=== PATIENT | male | born 2000 | race Caucasian/White ===

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

== ENCOUNTER 2021-01-10 18:19 | Emergency (ER) | payer OTHER, SELFPAY ==
--- NOTE | ~2021-01-10 | XR_ITS ---
EXAMINATION: XR CHEST CLINICAL INFORMATION: Shortness of breath. COMPARISON: Chest x-ray 12/18/2020 TECHNIQUE: 2 views of the chest were obtained. FINDINGS: No significant abnormality is noted involving the heart, lungs, mediastinum, bony thorax or soft tissues. XR/XR chest 2V IMPRESSION: Unremarkable examination.
[2021-01-10 18:32] VITALS: BP 118/62; PULSE 82; RESP 18; TEMP 37.2; O2SAT 98; BMI 23.6
[2021-01-10 19:24] LABS: Influenza A PCR NEGATIVE (Negative); Influenza B PCR NEGATIVE (Negative); Resp Syncy Virus RNA Qual PCR NEGATIVE (Negative); SARS COV2 PCR INHOUSE POSITIVE (Negative)
--- NOTE | 2021-01-10 19:51 | ED.URI ---
HPI - URI/Sore Throat General Chief Complaint: Upper Respiratory Symptoms Stated Complaint: daughter covid + diff breathing Time Seen by Provider: 01/10/21 19:51 History of Present Illness HPI Narrative: Patient complains of runny nose mild cough mild shortness of breath for past 24 hours and his daughter is positive for COVID There is no shortness of breath or chest pain now no nausea or vomiting Related Data Previous Rx's Medication Instructions Recorded albuterol sulfate 90 mcg/actuation 2 puff INHALATION Q4-6H PRN #8.5 g 12/18/20 aerosol inhaler doxycycline hyclate 100 mg tablet 100 mg PO Q12H 10 Days #20 tab 12/18/20 omeprazole 20 mg capsule,delayed 20 mg PO DAILY 30 Days #30 cap 12/18/20 release ondansetron 4 mg disintegrating 4 mg PO Q6-8H PRN #14 tab 12/18/20 tablet Allergies Allergy/AdvReac Type Severity Reaction Status Date / Time No Known Allergies Allergy Verified 12/18/20 20:49 Review of Systems Review of Systems: Positive for cough and runny nose Negative no fever no chills no dizziness no weakness no headache no neck pain no chest pain no shortness of breath now no sputum no coughing blood no sore throat no difficulty breathing or swallowing no abdominal pain no nausea vomiting or diarrhea no rash Yes all other systems are reviewed and are negative [facility] Past Medical History Source: nursing notes reviewed Medical History (Updated 01/10/21 @ 19:58 by AVEL Dillard) No known health problems Social History Social History Advance Directives: No Advance Directives Information Provided: No Physical Exam Vital Signs: Vital Signs: Last Vital Signs Temp 98.9 F 01/10/21 18:32 Pulse 82 01/10/21 18:32 Resp 18 01/10/21 18:32 BP 118/62 01/10/21 18:32 Pulse Ox 98 01/10/21 18:32 Body Mass Index 23.6 General appearance comfortable no distress Eyes no redness or discharge The pharynx no redness swelling or exudate The sinuses no tenderness The neck is supple Chest clear to auscultation bilateral Heart no murmur Abdomen soft nontender Extremities full range of motion x4 Skin no rash Course Course Course Narrative: COVID testing was positive, vital signs and physical exam were normal and well-appearing patient is discharged MDM - URI/Sore Throat Lab Data Labs: Lab Results 01/10/21 Range/Units 18:36 Influenza Type A (PCR) NEGATIVE (Negative) Influenza Type B (PCR) NEGATIVE (Negative) RSV RNA Qual (PCR) NEGATIVE (Negative) SARS-CoV-2 RNA (RT-PCR) POSITIVE A (Negative) Discharge Plan Discharge Clinical Impression: COVID-19 Patient Disposition: Home, Self-Care Additional Instructions: YOU TESTED POSITIVE FOR COVID SO YOU SHOULD BE OUT OF WORK FOR A WEEK AND NOT GO BACK IF YOU ARE STILL COUGHING OR SYMPTOMATIC RETURN ANY TIME FOR DIFFICULTY BREATHING ANY WORSE CONDITION OR ANY WORSE CONCERNS DRINK PLENTY FLUIDS AND TYLENOL OR MOTRIN FOR BODY ACHES OR FEVER Prescriptions: No Action albuterol sulfate 90 mcg/actuation HFA aerosol inhaler 2 puff inhalation Q4-6H PRN (Reason: shortness of breath or wheezing) Qty: 8.5 RF: 0 omeprazole 20 mg capsule,delayed release(DR/EC) 20 mg PO DAILY 30 Days Qty: 30 RF: 0 ondansetron 4 mg tablet,disintegrating 4 mg PO Q6-8H PRN (Reason: nausea and vomiting) Qty: 14 RF: 0 doxycycline hyclate 100 mg tablet 100 mg PO Q12H 10 Days Qty: 20 RF: 0 Stand Alone Forms: Work/School Release Interventions: ED Discharge Assessment Last Done: 01/10/21 20:06 Discharge Date/Time: 01/10/21 20:10
== END 2021-01-10 20:10 | disposition home or self-care (01) ==
PROVIDERS: Emergency Provider Emergency Medicine
DX: U07.1 COVID-19 (principal); R05.9 Cough, unspecified; Z79.899 Other long term (current) drug therapy
CPT/HCPCS: 0241U; 36415; 71046; 99283

== ENCOUNTER 2021-02-11 13:19 | Emergency (ER) | payer OTHER, SELFPAY ==
[2021-02-11 13:40] VITALS: BP 104/49; PULSE 63; RESP 19; TEMP 36.6; O2SAT 98; BMI 23.6
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
== END 2021-02-11 15:53 | disposition home or self-care (01) ==
PROVIDERS: Emergency Provider Emergency Medicine
DX: S39.012A Strain of muscle, fascia and tendon of lower back, initial encounter (principal); V43.52XA Car driver injured in collision with other type car in traffic accident, initial encounter; Y93.9 Activity, unspecified; Y92.410 Unspecified street and highway as the place of occurrence of the external cause; Y99.9 Unspecified external cause status
CPT/HCPCS: 99283

== ENCOUNTER 2021-11-06 00:30 | Emergency (ER) | payer OTHER, SELFPAY ==
[2021-11-06 01:28] VITALS: BP 141/62; PULSE 75; RESP 17; TEMP 36.7; O2SAT 100; BMI 23.6
== END 2021-11-06 07:26 | disposition left against medical advice (07) ==
PROVIDERS: Emergency Provider Emergency Medicine
DX: S06.0X0A Concussion without loss of consciousness, initial encounter (principal); W20.8XXA Other cause of strike by thrown, projected or falling object, initial encounter; Y93.89 Activity, other specified; Y92.017 Garden or yard in single-family (private) house as the place of occurrence of the external cause; Y99.9 Unspecified external cause status
CPT/HCPCS: 99281

== ENCOUNTER 2021-11-07 23:41 | Emergency (ER) | payer OTHER, SELFPAY ==
--- NOTE | ~2021-11-07 | XR_ITS ---
EXAMINATION: XR CHEST CLINICAL INFORMATION: Right-sided pain COMPARISON: 01/10/2021 TECHNIQUE: 2 views of the chest were obtained. FINDINGS: The lungs are well expanded. There is no focal consolidation, edema, or effusion. No pneumothorax. The cardiomediastinal silhouette is within normal limits. No acute osseous abnormality. XR/XR chest 2V IMPRESSION: Clear lungs.
[2021-11-08 00:13] VITALS: BP 116/68; PULSE 65; RESP 16; TEMP 37; O2SAT 99; BMI 23.6
--- NOTE | 2021-11-08 03:55 | PC.NURSE ---
Pt. is alert and oriented X3. C/O pain in the arm and slight nausea. Sitting in bed, waiting for provider.
--- NOTE | 2021-11-08 03:58 | ED.EXTPRO ---
HPI - Extremity Problem General Chief complaint: Extremity Injury, Upper Stated complaint: R Arm pain/No Inj Time Seen by Provider: 11/08/21 01:21 Source: patient Mode of arrival: ambulatory Limitations: no limitations History of Present Illness HPI Narrative: Patient complaining of pain in the right shoulder right front of the chest for last 2 weeks with no history of trauma no shortness of breath occasional cough no fever or chills Related Data Previous Rx's Medication Instructions Recorded albuterol sulfate 90 mcg/actuation 2 puff inhalation Q4-6H PRN 12/18/20 aerosol inhaler shortness of breath or wheezing #8.5 grams doxycycline hyclate 100 mg tablet 100 mg PO Q12H 10 days #20 tabs 12/18/20 omeprazole 20 mg capsule,delayed 20 mg PO DAILY 30 days #30 caps 12/18/20 release ondansetron 4 mg disintegrating 4 mg PO Q6-8H PRN nausea and 12/18/20 tablet vomiting #14 tabs ibuprofen 600 mg tablet 600 mg PO Q6H PRN pain #20 tabs 02/11/21 ibuprofen 600 mg tablet 600 mg PO Q6H PRN Pain, Moderate 11/08/21 #30 tabs Allergies Allergy/AdvReac Type Severity Reaction Status Date / Time No Known Allergies Allergy Verified 12/18/20 20:49 Review of Systems Review of Systems: Yes all other systems are reviewed and are negative [facility] Past Medical History Medical History No known health problems Social History Social History Alcohol intake: current Alcohol intake frequency: holidays/special occasions only Patient Tobacco Use Status: Never used Tobacco Smoked in Last 30 Days: No Use of substances other than those prescribed or required for medical reasons: Yes Substance Use Type: Marijuana Advance Directives: No Advance Directives Information Provided: No Physical Exam Vital Signs: Vital Signs: Last Vital Signs Temp 98.6 F 11/08/21 00:13 Pulse 65 11/08/21 00:13 Resp 16 11/08/21 00:13 BP 116/68 11/08/21 00:13 Pulse Ox 99 11/08/21 00:13 O2 Del Method 11/08/21 00:13 BMI result Body Mass Index 23.6 Appearance: Alert. Oriented X3. No acute distress. Neck: Normal inspection. Neck supple. CVS: Normal heart rate and rhythm. Pulses normal. Respiratory: No respiratory distress. Equal air entry bilateral, no wheezing/rales/rhonchi Abdomen: Soft and nontender. Extremities: Diffuse tenderness right rotator cuff area increases pain on pushing and flexion Neuro: Oriented X 3. No motor deficit. MDM - Extremity (Nontraumatic) MDM Narrative Medical decision making narrative: X-ray negative for any acute likely muscular strain discharge patient home on ibuprofen Discharge Plan Discharge Clinical Impression: Chest wall muscle strain Patient Disposition: Home, Self-Care Instructions: Muscle Strain (ED), Chest Wall Pain (ED) Additional Instructions: Take ibuprofen for pain Apply ice Prescriptions: New ibuprofen 600 mg tablet 600 mg PO Q6H PRN (Reason: Pain, Moderate) Qty: 30 0RF No Action albuterol sulfate 90 mcg/actuation HFA aerosol inhaler 2 puff inhalation Q4-6H PRN (Reason: shortness of breath or wheezing) Qty: 8.5 0RF omeprazole 20 mg capsule,delayed release(DR/EC) 20 mg PO DAILY 30 Days Qty: 30 0RF ondansetron 4 mg tablet,disintegrating 4 mg PO Q6-8H PRN (Reason: nausea and vomiting) Qty: 14 0RF doxycycline hyclate 100 mg tablet 100 mg PO Q12H 10 Days Qty: 20 0RF ibuprofen 600 mg tablet 600 mg PO Q6H PRN (Reason: pain) Qty: 20 0RF
[2021-11-08] MEDS: Ibuprofen 600 MG TABLET PO (05:20)
== END 2021-11-08 05:28 | disposition home or self-care (01) ==
PROVIDERS: Emergency Provider Internal Medicine
DX: R07.89 Other chest pain (principal); Z79.899 Other long term (current) drug therapy
CPT/HCPCS: 71046; 99283; 99284